=== PATIENT | female | born 1990 | race Caucasian/White ===

== ENCOUNTER 2017-09-01 22:50 | Emergency (ER) | payer OTHER, BC ==
--- NOTE | 2017-09-02 01:03 | ED ---
Laceration/Wound HPI - HPI Summary HPI Summary: 27 female presents with right foot laceration today. States cut it on a piece of glass. She denies any foreign body in the wound. She said it bleed for 2 hours. The area is not actively bleeding. she has issues with her platelets and is seeing hematology for. She's not blood thinners. She states that she did have some numbness in the area that has resolved. She believes her immunizations are up-to-date. - History of Current Complaint Stated Complaint: RT LEG LAC Time Seen by Provider: 09/02/17 00:44 Hx Last Menstrual Period: now Pain Intensity: 4 - Allergy/Home Medications Allergies/Adverse Reactions: Allergies Allergy/AdvReac Type Severity Reaction Status Date / Time MS Peanut-derived Allergy Severe Anaphylatic Verified 06/23/16 12:23 [Peanut-derived] Shock MS Amoxicillin [Amoxicillin] Allergy Mild Rash Verified 06/23/16 12:23 lactose intolerant Allergy Diarrhea Uncoded 06/23/16 12:23 PMH/Surg Hx/FS Hx/Imm Hx Endocrine/Hematology History: Denies: Hx Diabetes, Hx Thyroid Disease Cardiovascular History: Denies: Hx Hypertension, Hx Pacemaker/ICD Respiratory History: Denies: Hx Asthma, Hx Chronic Obstructive Pulmonary Disease (COPD) GI History: Denies: Hx Ulcer History: Denies: Hx Dialysis, Hx Renal Disease Sensory History: Denies: Hx Hearing Aid Psychiatric History: Reports: Hx Anxiety, Hx Bipolar Disorder Denies: Hx Panic Disorder - Surgical History Surgery Procedure, Year, and Place: T/A , - Immunization History Date of Tetanus Vaccine: Up to date Date of Influenza Vaccine: Fall 2012 Infectious Disease History: No Infectious Disease History: Denies: Hx Hepatitis, Hx Human Immunodeficiency Virus (HIV), Traveled Outside the [place] in Last 30 Days - Family History Known Family History: Positive: None Family History: denies cardio vascular issues in family lineage - Social History Alcohol Use: Occasionally Substance Use Type: Reports: Prescribed Smoking Status (MU): Never Smoked Tobacco Review of Systems Negative: Fever Negative: Chest Pain Negative: Shortness Of Breath Positive: Other - laceration right foot All Other Systems Reviewed And Are Negative: Yes Physical Exam Triage Information Reviewed: Yes Vital Signs On Initial Exam: Initial Vitals Temp Pulse Resp BP Pulse Ox 98.3 F 102 18 122/89 100 09/01/17 22:53 09/01/17 22:53 09/01/17 22:53 09/01/17 22:53 09/01/17 22:53 Vital Signs Reviewed: Yes Appearance: Positive: Well-Appearing Skin: Positive: Warm, Dry, Other - 1/2 centimeters superficial laceration to right foot Head/Face: Positive: Normal Head/Face Inspection Eyes: Positive: Normal, Conjunctiva Clear ENT: Positive: Pharynx normal Respiratory/Lung Sounds: Positive: Clear to Auscultation, Breath Sounds Present Cardiovascular: Positive: Normal, RRR Musculoskeletal: Positive: Strength/ROM Intact - Right foot, Other - Good pulses Neurological: Positive: Normal Psychiatric: Positive: Normal Procedures - Laceration/Wound Repair 1 Location: Other - right foot Description: Linear Irrigated w/ Saline (ccs): 100 Laceration/Wound Explored: no foreign body removed Closure: Skin Adhesive, SteriStrips Diagnostics - Vital Signs Vital Signs Temp Pulse Resp BP Pulse Ox 09/01/17 22:53 98.3 F 102 18 122/89 100 - Laboratory Lab Statement: Any lab studies that have been ordered have been reviewed, and results considered in the medical decision making process. Laceration Repair Course/Dx - Course Course Of Treatment: 27 female presents with right foot laceration today. States cut it on a piece of glass. She denies any foreign body in the wound. She said it bleed for 2 hours. The area is not actively bleeding. she has issues with her platelets and is seeing hematology for. She's not blood thinners. She states that she did have some numbness in the area that has resolved. She believes her immunizations are up-to-date. On exam 1/2cm superficial laceration that cleaned place glue on. Patient understands and agrees the plan. - Differential Dx Differental Diagnoses: Abrasion, Avulsion, Laceration - Clinical Impression Provider Diagnoses: Laceration of right foot Discharge - Sign-Out/Discharge Documenting (check all that apply): Patient Departure - Discharge Plan Condition: Good Disposition: HOME Patient Education Materials: Care For Your Stitches (ED) Forms: *Work Release Referrals: Rizwan Wells MD [Primary Care Provider] - Additional Instructions: Place ice on area Take Tylenol for pain as needed every 6 hours Keep dry for 24 hours Glue will fall off on own Avoid scrubbing area Return to ED if develop any signs of infection or any new or worsening symptoms - Billing Disposition and Condition Condition: GOOD Disposition: Home
[2017-09-02 01:28] VITALS: BP 111/64
== END 2017-09-02 01:27 | disposition home or self-care (01) ==
LOC: ED 22:50
DX: S91.311A Laceration without foreign body, right foot, initial encounter (principal); W25.XXXA Contact with sharp glass, initial encounter; Y92.9 Unspecified place or not applicable
CPT/HCPCS: 99282

== ENCOUNTER 2018-03-27 17:38 | Emergency (ER) | payer BC ==
[2018-03-27 17:51] VITALS: BP 130/94
--- NOTE | 2018-03-27 20:02 | ED ---
Laceration/Wound HPI - HPI Summary HPI Summary: 27-year-old female presents to left pinky laceration two days ago. She was see at urgent care yesterday and had glued placed on the area. States that glue stuck to her gauze so it ended up coming off. She states the area continues to bleed occasionally. She denies any numbness or tingling. Immunizations up-to- date. Has no medical conditions. No pus or erythema around the area. No fevers. - History of Current Complaint Stated Complaint: LT PINKY LAC Time Seen by Provider: 03/27/18 19:33 Hx Last Menstrual Period: pt doesn't get periods Pain Intensity: 2 - Allergy/Home Medications Allergies/Adverse Reactions: Allergies Allergy/AdvReac Type Severity Reaction Status Date / Time amoxicillin Allergy Rash Verified 03/26/18 14:16 peanut Allergy Anaphylatic Verified 03/26/18 14:16 Shock lactose intolerant Allergy Diarrhea Uncoded 03/26/18 14:16 PMH/Surg Hx/FS Hx/Imm Hx Endocrine/Hematology History: Denies: Hx Diabetes, Hx Thyroid Disease Cardiovascular History: Denies: Hx Hypertension, Hx Pacemaker/ICD Respiratory History: Denies: Hx Asthma, Hx Chronic Obstructive Pulmonary Disease (COPD) GI History: Denies: Hx Ulcer History: Denies: Hx Dialysis, Hx Renal Disease Psychiatric History: Reports: Hx Anxiety, Hx Bipolar Disorder Denies: Hx Panic Disorder - Surgical History Surgery Procedure, Year, and Place: T/A , tooth removal - Immunization History Date of Tetanus Vaccine: Up to date Date of Influenza Vaccine: Fall 2012 Infectious Disease History: No Infectious Disease History: Denies: Hx Hepatitis, Hx Human Immunodeficiency Virus (HIV), Traveled Outside the [place] in Last 30 Days - Family History Known Family History: Positive: None Negative: Blood Disorder Family History: denies cardio vascular issues in family lineage - Social History Alcohol Use: None Hx Substance Use: No Substance Use Type: Reports: Prescribed Smoking Status (MU): Never Smoked Tobacco Review of Systems Negative: Fever Negative: Chest Pain Negative: Shortness Of Breath Positive: Other - left pinky finger lac All Other Systems Reviewed And Are Negative: Yes Physical Exam Triage Information Reviewed: Yes Vital Signs On Initial Exam: Initial Vitals Temp Pulse Resp BP Pulse Ox 98.9 F 99 16 130/94 98 03/27/18 17:47 03/27/18 17:47 03/27/18 17:47 03/27/18 17:47 03/27/18 17:47 Vital Signs Reviewed: Yes Appearance: Positive: Well-Appearing Skin: Positive: Warm, Dry, Other - 1cm superficial laceration of left pinky finger Head/Face: Positive: Normal Head/Face Inspection Eyes: Positive: Normal, Conjunctiva Clear ENT: Positive: Pharynx normal Respiratory/Lung Sounds: Positive: Clear to Auscultation, Breath Sounds Present Cardiovascular: Positive: Normal, RRR Musculoskeletal: Positive: Strength/ROM Intact - left pinky finger, Other - capillary refill<2secs Neurological: Positive: Normal Psychiatric: Positive: Normal Diagnostics - Vital Signs Vital Signs Temp Pulse Resp BP Pulse Ox 03/27/18 17:47 98.9 F 99 16 130/94 98 - Laboratory Lab Statement: Any lab studies that have been ordered have been reviewed, and results considered in the medical decision making process. Laceration Repair Course/Dx - Course Course Of Treatment: 27-year-old female presents to left pinky laceration two days ago. She was see at urgent care yesterday and had glued placed on the area. States that glue stuck to her gauze so it ended up coming off. She states the area continues to bleed occasionally. She denies any numbness or tingling. Immunizations up-to-date. Has no medical conditions. No pus or erythema around the area. No fevers. On exam has flap-like superficial laceration distal pharynx of left pinky. No evidence of cellulitis or infection. Clean area and place a Steri-Strip. Told to keep the area clean and watch for any signs of infection. Told to return if developed any signs of infection. Patient understands agrees with plan. - Differential Dx Differental Diagnoses: Abrasion, Avulsion, Laceration - Clinical Impression Provider Diagnoses: Laceration of left little finger Discharge - Sign-Out/Discharge Documenting (check all that apply): Patient Departure Patient Received Moderate/Deep Sedation with Procedure: No - Discharge Plan Condition: Good Disposition: HOME Patient Education Materials: Laceration Without Closure (ED) Referrals: Rizwan Wells MD [Primary Care Provider] - Additional Instructions: wash area with soap and water twice a day Keep area covered Return to ED if develop any spreading redness or any new or worsening symptoms - Billing Disposition and Condition Condition: GOOD Disposition: Home
== END 2018-03-27 20:06 | disposition home or self-care (01) ==
LOC: ED 17:38
DX: S61.217S Laceration without foreign body of left little finger without damage to nail, sequela (principal); X58.XXXS Exposure to other specified factors, sequela; Z88.0 Allergy status to penicillin
CPT/HCPCS: 99281